=== PATIENT | male | born 1980 | race African-American/Black ===

== ENCOUNTER 2017-10-25 07:54 | Observation (INO) ==
[2017-10-25] MEDS ORDERED: ONDANSETRON 4 MG/2 ML VIAL IV STA (08:19)
[2017-10-25] MEDS ORDERED: HYDROmorphone 2 MG/1 ML VIAL IV STA (08:19)
[2017-10-25] MEDS ORDERED: PANTOPRAZOLE 40 MG VIAL IV STA (08:19)
[2017-10-25] MEDS ORDERED: SODIUM CHLORIDE 0.9% 1,000 ML IV STA ×2 (08:19→08:59)
[2017-10-25 08:25] LABS: Hematocrit 40.5 VOL% (42.0-52.0); Hemoglobin 14.3 GM/DL (14.0-18.0); Mean Corpuscular Hemoglobin 31 PG (27-34); Mean Corpuscular Volume 86.9 FL (87-102); Red Blood Count 4.66 MC/CUMM (3.8-5.5); White Blood Count 8.7 T/CUMM (4-12)
[2017-10-25 08:26] LABS: Basophils # 0.1 10*3/uL (0.0-0.2); Basophils % 1.2 % (0.0-0.8); Eosinophils # 0.1 10*3/uL (0.0-0.87); Eosinophils % 0.9 % (0.00-10.9); Immature Granulocytes % 0.3 %; Immature Granulocytes Absolute 0.03 #; Lymphocytes # 2.1 10*3/uL (1.4-4.0); Mean Corpuscular HGB Conc 35.3 GM/DL (32-36); Mean Platelet Volume 10.3 FL (9.6-12.0); Monocytes # 0.7 10*3/uL (0.11-0.8); Monocytes % 7.7 % (1.7-12.7); Neutrophils # 5.7 10*3/uL (1.4-7.4); Neutrophils % 65.9 % (38.7-73.9); Platelet Count 270 T/CUMM (130-400); Red Cell Distribution Width 13.7 % (9.3-17.3)
[2017-10-25 08:39] LABS: Alanine Aminotransferase 38 U/L (16-61); Albumin 3.6 G/DL (3.4-5.0); Alkaline Phosphatase 86 U/L (45-117); Aspartate Amino Transferase 52 U/L (0-37); Blood Urea Nitrogen 7 MG/DL (7-18); Calcium 8.9 MG/DL (8.5-10.1); Glucose 115 MG/DL (74-106); Osmolality,Calculated 284.8 MOS/KG (273-304); Potassium 3.2 MMOL/L (3.5-5.1); Sodium 144 MMOL/L (136-145); Total Protein 7.2 G/DL (6.4-8.3)
[2017-10-25 08:44] LABS: Lactic Acid 3.6 MMOL/L (0.4-2.0)
[2017-10-25 09:57] LABS: Apearance,Urine CLEAR (Clear); Bilirubin,Urine Negative (Negative); Blood, Urine Negative (Negative); Glucose,Urine (UA) Negative (Negative); Hyaline Casts,Urine 6 /LPF (0-3); Ketones,Urine Negative (Negative); Mucus,Urine Few /LPF (Occasional); Nitrite,Urine Negative (Negative); Protein,Urine 30 MG/DL; RBC,Urine <1 /HPF (0-4); Urine Color Yellow (Yellow); Urine Specific Gravity 1.019 (1.001-1.035); Urine Urobilinogen < 2.0 EU/DL (0.2-1.0); WBC,Urine <1 /HPF (0-6)
[2017-10-25 10:16] LABS: Barbiturates Screen,Urine Negative (Negative); Benzodiazepines Screen,Urine Negative (Negative); Cannabinoid Screen,Urine Negative (Negative); Opiate Screen,Urine Negative (Negative); Phencyclidine Screen,Urine Negative (Negative)
[2017-10-25] MEDS ORDERED: MORPHINE 4 MG/1 ML VIAL IV PRN (11:16)
[2017-10-25] MEDS ORDERED: ONDANSETRON 4 MG/2 ML VIAL IV PRN (11:16)
[2017-10-25] MEDS ORDERED: guaiFENesin/DM ER 600-30 MG TABLET PO PRN (11:16)
[2017-10-25] MEDS ORDERED: ACETAMINOPHEN 325 MG TABLET PO PRN (11:16)
[2017-10-25] MEDS ORDERED: diphenhydrAMINE CAP 25 MG CAPSULE PO PRN (11:16)
[2017-10-25] MEDS ORDERED: NICOTINE 21 MG/24 HR PATCH TRANSDERM PRN (11:16)
[2017-10-25] MEDS ORDERED: POTASSIUM CHLORIDE 20 MEQ TABLET PO ONE (11:27)
[2017-10-25] MEDS: SODIUM CHLORIDE 0.9% 1,000 ML IV SCH ×2 (12:39→20:55)
[2017-10-25] MEDS: PANTOPRAZOLE 40 MG VIAL IV SCH ×2 (12:40→20:55)
[2017-10-25 15:00] LABS: Troponin I Only < 0.015 NG/ML (0.00-0.045)
[2017-10-26] MEDS: SODIUM CHLORIDE 0.9% 1,000 ML IV SCH (04:30)
[2017-10-26 06:49] LABS: Basophils # 0.1 10*3/uL (0.0-0.2); Eosinophils # 0.3 10*3/uL (0.0-0.87); Eosinophils % 4.3 % (0.00-10.9); Hematocrit 34.4 VOL% (42.0-52.0); Hemoglobin 12.4 GM/DL (14.0-18.0); Immature Granulocytes % 0.2 %; Immature Granulocytes Absolute 0.01 #; Lymphocytes # 1.6 10*3/uL (1.4-4.0); Mean Corpuscular Hemoglobin 31 PG (27-34); Mean Platelet Volume 10.5 FL (9.6-12.0); Monocytes # 0.5 10*3/uL (0.11-0.8); Monocytes % 8.9 % (1.7-12.7); NRBC # 0.02 10*3/uL; Neutrophils # 3.4 10*3/uL (1.4-7.4); Neutrophils % 58.6 % (38.7-73.9); Platelet Count 198 T/CUMM (130-400); Red Cell Distribution Width 13.7 % (9.3-17.3); White Blood Count 5.9 T/CUMM (4-12)
[2017-10-26 07:02] LABS: Albumin 2.5 G/DL (3.4-5.0); Bilirubin,Total 1.3 MG/DL (0.2-1.0); Calcium 7.9 MG/DL (8.5-10.1); Osmolality,Calculated 278.1 MOS/KG (273-304); Potassium 3.8 MMOL/L (3.5-5.1); Risk Ratio 2.12; Thyroid Stimulating Hormone 0.958 uIU/ml (0.358-3.74); Total Protein 5.3 G/DL (6.4-8.3); VLDL CHOLESTEROL 18.4 MG/DL
[2017-10-26] MEDS: PANTOPRAZOLE 40 MG VIAL IV SCH (09:17)
[2017-10-26 12:08] VITALS: BP 107/68
== END 2017-10-26 12:15 | disposition home or self-care (01) ==
LOC: EDBD → EDUNIT# → N.EDINP 07:54 → N.ED 07:54 → SUATTDRO 10:41 → N.EDINP 12:24 → N.2E 12:29
PROVIDERS: ADMIT Family Medicine; ATTEND Internal Medicine

== ENCOUNTER 2018-04-07 12:01 | Inpatient (IN) ==
[2018-04-07] MEDS ORDERED: SODIUM CHLORIDE 0.9% 1,000 ML IV STA (12:17)
[2018-04-07] MEDS ORDERED: LORazepam 2 MG/1 ML VIAL ONE (12:36)
[2018-04-07] MEDS ORDERED: LORazepam 2 MG/1 ML VIAL IV STA ×2 (12:42→13:37)
[2018-04-07 12:43] LABS: Apearance,Urine CLEAR (Clear); Bilirubin,Urine Negative (Negative); Blood, Urine Negative (Negative); Glucose,Urine (UA) Negative (Negative); Ketones,Urine Negative (Negative); Nitrite,Urine Negative (Negative); Protein,Urine Negative; RBC,Urine <1 /HPF (0-4); Urine Color Colorless (Yellow); Urine Specific Gravity 1.001 (1.001-1.035); Urine Urobilinogen < 2.0 EU/DL (0.2-1.0)
[2018-04-07 12:45] LABS: Barbiturates Screen,Urine Negative (Negative); Benzodiazepines Screen,Urine Negative (Negative); Cannabinoid Screen,Urine Negative (Negative); Opiate Screen,Urine Negative (Negative); Phencyclidine Screen,Urine Negative (Negative)
[2018-04-07 13:00] LABS: Basophils # 0.1 10*3/uL (0.0-0.2); Basophils % 0.7 % (0.0-0.8); Eosinophils # 0.2 10*3/uL (0.0-0.87); Eosinophils % 2.1 % (0.00-10.9); Hematocrit 38.3 VOL% (42.0-52.0); Immature Granulocytes % 0.5 %; Immature Granulocytes Absolute 0.04 #; Lymphocytes # 1.8 10*3/uL (1.4-4.0); Lymphocytes % 22.6 % (21.2-54.2); Mean Corpuscular HGB Conc 33.9 GM/DL (32-36); Mean Corpuscular Hemoglobin 30 PG (27-34); Mean Corpuscular Volume 88.2 FL (87-102); Mean Platelet Volume 10.2 FL (9.6-12.0); Monocytes # 0.7 10*3/uL (0.11-0.8); Monocytes % 9.1 % (1.7-12.7); Neutrophils # 5.3 10*3/uL (1.4-7.4); Platelet Count 123 T/CUMM (130-400); Red Blood Count 4.34 MC/CUMM (3.8-5.5); Red Cell Distribution Width 14.1 % (9.3-17.3); White Blood Count 8.1 T/CUMM (4-12)
[2018-04-07 13:07] LABS: INR 0.9; PT Patient Result 9.7 SECS; Partial Thromboplastin Time 27.1 SECS (0-40)
[2018-04-07] MEDS ORDERED: THIAMINE INJ 100 MG, FOLIC ACID INJ 1 MG, MAGNESIUM SULF INJ 2 GM, MULTIVITAMIN INJ 10 ... IV ONE (13:45)
[2018-04-07 14:03] LABS: Albumin 3.4 G/DL (3.4-5.0); Bilirubin,Total 0.4 MG/DL (0.2-1.0); Osmolality,Calculated 275.4 MOS/KG (273-304); Potassium 4.1 MMOL/L (3.5-5.1); Total Protein 7.1 G/DL (6.4-8.3)
[2018-04-07] MEDS ORDERED: chlordiazePOXIDE 25 MG CAPSULE PO PRN (14:31)
[2018-04-07] MEDS ORDERED: DICYCLOMINE 10 MG CAPSULE PO PRN (14:31)
[2018-04-07] MEDS ORDERED: ALBUTEROL 2.5 MG/3 ML NEB RESP TX PRN (14:31)
[2018-04-07] MEDS ORDERED: ONDANSETRON 4 MG/2 ML VIAL IV PRN (14:31)
[2018-04-07] MEDS ORDERED: PROMETHAZINE 25 MG/1 ML VIAL IM PRN (14:31)
[2018-04-07] MEDS ORDERED: PROMETHAZINE 25 MG TABLET PO PRN (14:31)
[2018-04-07] MEDS ORDERED: THIAMINE 200 MG/2 ML VIAL IV ONE (14:31)
[2018-04-07] MEDS ORDERED: hydrOXYzine HCL 25 MG TABLET PO PRN (14:31)
[2018-04-07] MEDS ORDERED: POTASSIUM CHLORIDE RIDER 10 MEQ in PREMIX 1 EACH IV PRN (14:39)
[2018-04-07] MEDS ORDERED: MAGNESIUM SULF RIDER 4 GM in PREMIX 1 EACH IV PRN (14:40)
[2018-04-07] MEDS ORDERED: MAGNESIUM SULF RIDER 2 GM in PREMIX 1 EACH IV PRN (14:40)
[2018-04-07] MEDS: LORazepam 2 MG/1 ML VIAL IV PRN ×2 (15:25→20:38)
[2018-04-07] MEDS: LACTATED RINGERS 1,000 ML IV SCH (16:00)
[2018-04-07] MEDS ORDERED: INFLUENZA VIRUS VACCINE 0.5 ML SYRINGE IM ONE (16:03)
[2018-04-07] MEDS: FAMOTIDINE 20 MG/2 ML VIAL IV SCH (16:14)
[2018-04-07] MEDS: ENOXAPARIN 40 MG/0.4 ML SYRINGE SUBCUT SCH (16:14)
[2018-04-07] MEDS: FOLIC ACID 1 MG TABLET PO SCH (20:38)
[2018-04-08] MEDS: LACTATED RINGERS 1,000 ML IV SCH ×3 (01:40→11:59)
[2018-04-08] MEDS: FAMOTIDINE 20 MG/2 ML VIAL IV SCH ×2 (05:10→16:15)
[2018-04-08 05:31] LABS: Albumin 2.9 G/DL (3.4-5.0); Calcium 7.7 MG/DL (8.5-10.1); Osmolality,Calculated 281.8 MOS/KG (273-304); Potassium 3.9 MMOL/L (3.5-5.1); Total Protein 5.5 G/DL (6.4-8.3)
[2018-04-08 05:49] LABS: Basophils # 0.1 10*3/uL (0.0-0.2); Basophils % 1.2 % (0.0-0.8); Eosinophils # 0.3 10*3/uL (0.0-0.87); Hematocrit 31.8 VOL% (42.0-52.0); Hemoglobin 10.9 GM/DL (14.0-18.0); Immature Granulocytes % 0.4 %; Immature Granulocytes Absolute 0.02 #; Lymphocytes # 1.6 10*3/uL (1.4-4.0); Lymphocytes % 32.4 % (21.2-54.2); Mean Corpuscular HGB Conc 34.3 GM/DL (32-36); Mean Corpuscular Hemoglobin 31 PG (27-34); Mean Corpuscular Volume 89.3 FL (87-102); Mean Platelet Volume 11.3 FL (9.6-12.0); Monocytes # 0.4 10*3/uL (0.11-0.8); Monocytes % 8.3 % (1.7-12.7); Neutrophils # 2.7 10*3/uL (1.4-7.4); Neutrophils % 52.7 % (38.7-73.9); Platelet Count 108 T/CUMM (130-400); Red Blood Count 3.56 MC/CUMM (3.8-5.5); Red Cell Distribution Width 14.6 % (9.3-17.3)
[2018-04-08] MEDS: ACETAMINOPHEN 325 MG TABLET PO PRN (08:23)
[2018-04-08] MEDS: THIAMINE 100 MG TABLET PO SCH (08:24)
[2018-04-08] MEDS: ENOXAPARIN 40 MG/0.4 ML SYRINGE SUBCUT SCH (16:14)
[2018-04-08] MEDS: LORazepam 2 MG/1 ML VIAL IV PRN (16:15)
[2018-04-08] MEDS: FOLIC ACID 1 MG TABLET PO SCH (21:57)
[2018-04-09] MEDS: FAMOTIDINE 20 MG/2 ML VIAL IV SCH ×2 (03:58→15:58)
[2018-04-09] MEDS: THIAMINE 100 MG TABLET PO SCH (08:29)
[2018-04-09] MEDS: PSEUDOEPHEDRINE 30 MG TABLET PO SCH ×2 (10:28→21:21)
[2018-04-09] MEDS: FLUTICASONE 50 MCG NASAL SPRAY 16 GM BOTTLE BOTH NARES SCH ×2 (10:28→21:21)
[2018-04-09] MEDS: LACTATED RINGERS 1,000 ML IV SCH (10:29)
[2018-04-09] MEDS: ENOXAPARIN 40 MG/0.4 ML SYRINGE SUBCUT SCH (15:58)
[2018-04-09] MEDS: ACETAMINOPHEN 325 MG TABLET PO PRN (19:13)
[2018-04-09] MEDS: FOLIC ACID 1 MG TABLET PO SCH (21:21)
[2018-04-10] MEDS: LACTATED RINGERS 1,000 ML IV SCH (03:34)
[2018-04-10] MEDS: FAMOTIDINE 20 MG/2 ML VIAL IV SCH (04:06)
[2018-04-10 07:52] VITALS: BP 130/83
[2018-04-10] MEDS: THIAMINE 100 MG TABLET PO SCH (08:45)
[2018-04-10] MEDS: PSEUDOEPHEDRINE 30 MG TABLET PO SCH (08:45)
[2018-04-10] MEDS: FLUTICASONE 50 MCG NASAL SPRAY 16 GM BOTTLE BOTH NARES SCH (08:46)
[2018-04-10] MEDS ORDERED: INFLUENZA VIRUS VACCINE 0.5 ML SYRINGE IM ONE (09:30)
== END 2018-04-10 09:40 | disposition home or self-care (01) | DRG 897 ==
LOC: EDBD → EDUNIT# → N.ED 12:01 → SUATTDRO 14:31 → N.CC 14:31 → N.5E 04-08 13:08
PROVIDERS: ADMIT Family Medicine; ATTEND Internal Medicine

== ENCOUNTER 2022-01-23 06:17 | Inpatient (IN) ==
[2022-01-23] MEDS ORDERED: ONDANSETRON 4 MG/2 ML VIAL IV STA ×2 (06:53→08:50)
[2022-01-23] MEDS ORDERED: SODIUM CHLORIDE 0.9% 1,000 ML IV STA ×2 (06:53→09:21)
[2022-01-23] MEDS ORDERED: HYDROmorphone 1 MG/1 ML SYRINGE IV STA ×2 (06:53→09:21)
[2022-01-23 06:59] LABS: Basophils # 0.1 10*3/uL (0.0-0.2); Basophils % 1.2 % (0.0-0.8); Eosinophils # 0.1 10*3/uL (0.0-0.87); Eosinophils % 0.6 % (0.00-10.9); Hematocrit 40.4 VOL% (42.0-52.0); Hemoglobin 13.7 GM/DL (14.0-18.0); Immature Granulocytes % 0.3 %; Immature Granulocytes Absolute 0.03 #; Lymphocytes % 10.5 % (21.2-54.2); Mean Corpuscular HGB Conc 33.9 GM/DL (32-36); Mean Corpuscular Volume 91.6 FL (87-102); Monocytes # 0.5 10*3/uL (0.11-0.8); Monocytes % 5.5 % (1.7-12.7); Neutrophils % 81.9 % (38.7-73.9); Platelet Count 238 T/CUMM (130-400); Red Blood Count 4.41 MC/CUMM (3.8-5.5); Red Cell Distribution Width 13.8 % (9.3-17.3); White Blood Count 9.5 T/CUMM (4-12)
[2022-01-23 07:14] LABS: Albumin 3.3 G/DL (3.4-5.0); Bilirubin,Total 0.7 MG/DL (0.20-1.00); Calcium 9.1 MG/DL (8.5-10.1); Total Protein 6.7 G/DL (6.4-8.2)
[2022-01-23 07:17] LABS: Amorphous Crystals,Urine Few /HPF (Few); Mucus,Urine Moderate /LPF (Occasional)
[2022-01-23 07:19] LABS: Bilirubin,Urine Moderate mg/dL (Negative); Blood, Urine Negative (Negative); Glucose,Urine (UA) Negative (Negative); Ketones,Urine 40 mg/dL (Negative); Nitrite,Urine Negative (Negative); Protein,Urine 100 mg/dL (Negative); Urine Appearance Slightly Hazy (Clear); Urine Color Dark yellow (Yellow); Urine pH 8.5 (4.5-8.0)
[2022-01-23] MEDS ORDERED: PIPERACILLIN/TAZOBACTAM 3,375 MG in SODIUM CHLORIDE 0.9% 100 ML IV STA (09:58)
[2022-01-23] MEDS ORDERED: BISACODYL 5 MG TABLET PO PRN (10:46)
[2022-01-23] MEDS ORDERED: ONDANSETRON 4 MG/2 ML VIAL IV PRN (10:46)
[2022-01-23] MEDS ORDERED: ACETAMINOPHEN 325 MG TABLET PO PRN (10:46)
[2022-01-23] MEDS ORDERED: KETOROLAC 15 MG/1 ML VIAL IV PRN (10:46)
[2022-01-23] MEDS ORDERED: HYDROmorphone 1 MG/1 ML SYRINGE IV PRN (10:46)
[2022-01-23] MEDS ORDERED: PROMETHAZINE 25 MG/1 ML VIAL IM STA (11:00)
[2022-01-23] MEDS ORDERED: PROMETHAZINE 25 MG/1 ML VIAL ONE (11:01)
[2022-01-23] MEDS: LACTATED RINGERS 1,000 ML IV SCH ×2 (12:00→23:10)
[2022-01-23] MEDS: HYDROmorphone 1 MG/1 ML SYRINGE IV PRN (14:39)
[2022-01-23] MEDS: PIPERACILLIN/TAZOBACTAM 3,375 MG in SODIUM CHLORIDE 0.9% 100 ML IV SCH (17:00)
[2022-01-24] MEDS: PIPERACILLIN/TAZOBACTAM 3,375 MG in SODIUM CHLORIDE 0.9% 100 ML IV SCH ×3 (01:17→17:00)
[2022-01-24] MEDS: HYDROmorphone 1 MG/1 ML SYRINGE IV PRN ×2 (01:19→09:46)
[2022-01-24 05:24] LABS: Basophils # 0.1 10*3/uL (0.0-0.2); Basophils % 0.9 % (0.0-0.8); Eosinophils # 0.3 10*3/uL (0.0-0.87); Eosinophils % 4.2 % (0.00-10.9); Hematocrit 35.8 VOL% (42.0-52.0); Hemoglobin 12.5 GM/DL (14.0-18.0); Immature Granulocytes % 0.4 %; Immature Granulocytes Absolute 0.03 #; Lymphocytes # 1.4 10*3/uL (1.4-4.0); Lymphocytes % 19.1 % (21.2-54.2); Mean Corpuscular HGB Conc 34.9 GM/DL (32-36); Mean Corpuscular Volume 91.3 FL (87-102); Mean Platelet Volume 10.6 FL (9.6-12.0); Monocytes # 0.5 10*3/uL (0.11-0.8); Monocytes % 6.9 % (1.7-12.7); Neutrophils % 68.5 % (38.7-73.9); Red Blood Count 3.92 MC/CUMM (3.8-5.5); Red Cell Distribution Width 13.7 % (9.3-17.3); White Blood Count 7.4 T/CUMM (4-12)
[2022-01-24 05:26] LABS: Albumin 2.7 G/DL (3.4-5.0); Bilirubin,Total 1.1 MG/DL (0.20-1.00); Calcium 8.2 MG/DL (8.5-10.1); Osmolality,Calculated 275.4 MOS/KG (273-304); Platelet Count 190 T/CUMM (130-400); Potassium 3.5 MMOL/L (3.5-5.1); Total Protein 5.6 G/DL (6.4-8.2)
[2022-01-24] MEDS: LACTATED RINGERS 1,000 ML IV SCH ×2 (05:59→16:29)
[2022-01-24] MEDS: PANTOPRAZOLE 40 MG TABLET PO SCH (09:42)
[2022-01-25] MEDS: PIPERACILLIN/TAZOBACTAM 3,375 MG in SODIUM CHLORIDE 0.9% 100 ML IV SCH ×3 (02:58→17:49)
[2022-01-25] MEDS: PANTOPRAZOLE 40 MG TABLET PO SCH (08:41)
[2022-01-25 09:06] LABS: Basophils # 0.1 10*3/uL (0.0-0.2); Eosinophils # 0.4 10*3/uL (0.0-0.87); Eosinophils % 4.9 % (0.00-10.9); Hematocrit 38.7 VOL% (42.0-52.0); Hemoglobin 13.1 GM/DL (14.0-18.0); Immature Granulocytes % 0.6 %; Immature Granulocytes Absolute 0.04 #; Lymphocytes # 1.1 10*3/uL (1.4-4.0); Lymphocytes % 14.6 % (21.2-54.2); Mean Corpuscular HGB Conc 33.9 GM/DL (32-36); Mean Platelet Volume 10.7 FL (9.6-12.0); Monocytes # 0.4 10*3/uL (0.11-0.8); Monocytes % 6.1 % (1.7-12.7); Neutrophils % 72.8 % (38.7-73.9); Platelet Count 178 T/CUMM (130-400); Red Blood Count 4.16 MC/CUMM (3.8-5.5); Red Cell Distribution Width 13.5 % (9.3-17.3); White Blood Count 7.2 T/CUMM (4-12)
[2022-01-25 09:21] LABS: Calcium 8.7 MG/DL (8.5-10.1)
[2022-01-25] MEDS: LACTATED RINGERS 1,000 ML IV SCH ×2 (11:21→14:30)
[2022-01-26] MEDS: PIPERACILLIN/TAZOBACTAM 3,375 MG in SODIUM CHLORIDE 0.9% 100 ML IV SCH ×2 (02:13→10:00)
[2022-01-26] MEDS: LACTATED RINGERS 1,000 ML IV SCH ×2 (02:15→03:32)
[2022-01-26] MEDS: PANTOPRAZOLE 40 MG TABLET PO SCH (08:46)
[2022-01-26 11:18] VITALS: BP 118/76
== END 2022-01-26 11:55 | disposition home or self-care (01) | DRG 392 ==
LOC: N.ED 06:17 → N.3E 11:21
PROVIDERS: ADMIT Student in an Organized Health Care Education/Training Program; ATTEND Student in an Organized Health Care Education/Training Program

== ENCOUNTER 2022-06-07 10:44 | Observation (INO) ==
[2022-06-07] MEDS ORDERED: HYDROmorphone 1 MG/1 ML SYRINGE IV STA (11:13)
[2022-06-07] MEDS ORDERED: SODIUM CHLORIDE 0.9% 1,000 ML IV STA ×2 (11:13→13:21)
[2022-06-07] MEDS ORDERED: ONDANSETRON 4 MG/2 ML VIAL IV STA ×2 (11:13→14:04)
[2022-06-07 11:35] LABS: Basophils # 0.1 10*3/uL (0.0-0.2); Basophils % 1.2 % (0.0-0.8); Eosinophils % 0.2 % (0.00-10.9); Hematocrit 43.1 VOL% (42.0-52.0); Hemoglobin 15.1 GM/DL (14.0-18.0); Immature Granulocytes % 0.5 %; Immature Granulocytes Absolute 0.03 #; Lymphocytes # 0.7 10*3/uL (1.4-4.0); Lymphocytes % 11.5 % (21.2-54.2); Mean Corpuscular Volume 87.4 FL (87-102); Mean Platelet Volume 9.9 FL (9.6-12.0); Monocytes # 0.5 10*3/uL (0.11-0.8); Monocytes % 8.3 % (1.7-12.7); Neutrophils % 78.3 % (38.7-73.9); Platelet Count 187 T/CUMM (130-400); Red Blood Count 4.93 MC/CUMM (3.8-5.5); Red Cell Distribution Width 13.9 % (9.3-17.3); White Blood Count 6.41 T/CUMM (4-12)
[2022-06-07 11:56] LABS: Alanine Aminotransferase 49 U/L (16-61); Albumin 4.6 G/DL (3.4-5.0); Alkaline Phosphatase 107 U/L (45-117); Amylase 122 U/L (25-115); Aspartate Amino Transferase 57 U/L (0-37); Blood Urea Nitrogen 9 MG/DL (7-18); Calcium 9.5 MG/DL (8.5-10.1); Carbon Dioxide 28 MMOL/L (21-32); Chloride 101 MMOL/L (98-107); Glucose 116 MG/DL (74-106); Osmolality,Calculated 280.3 MOS/KG (273-304); Potassium 3.9 MMOL/L (3.5-5.1); Sodium 141 MMOL/L (136-145); Total Protein 8.6 G/DL (6.4-8.2)
[2022-06-07 13:58] LABS: Bacteria,Urine Occasional /HPF (Few); Mucus,Urine Occasional /LPF (Occasional); RBC,Urine 1 /HPF (0-4)
[2022-06-07 13:59] LABS: Bilirubin,Urine Negative (Negative); Blood, Urine Negative (Negative); Glucose,Urine (UA) Negative (Negative); Ketones,Urine Negative (Negative); Nitrite,Urine Negative (Negative); Protein,Urine 100 mg/dL (Negative); Urine Appearance Clear (Clear); Urine Color Yellow (Yellow); Urine Urobilinogen 0.2 eU/dL (<2.0)
[2022-06-07] MEDS ORDERED: PROMETHAZINE INJ 25 MG in SODIUM CHLORIDE 0.9% 50 ML IV STA ×2 (15:39→16:05)
[2022-06-07] MEDS ORDERED: PROMETHAZINE 25 MG/1 ML VIAL ONE (16:04)
[2022-06-07] MEDS ORDERED: ONDANSETRON 4 MG/2 ML VIAL IV PRN (17:32)
[2022-06-07] MEDS ORDERED: ACETAMINOPHEN 325 MG TABLET PO PRN (17:32)
[2022-06-07] MEDS ORDERED: PROMETHAZINE 25 MG/1 ML VIAL IM PRN (17:32)
[2022-06-07] MEDS ORDERED: LACTATED RINGERS 1,000 ML IV ONE (17:35)
[2022-06-07] MEDS: PIPERACILLIN/TAZOBACTAM 3,375 MG in SODIUM CHLORIDE 0.9% 100 ML IV SCH (21:19)
[2022-06-07] MEDS: LACTATED RINGERS 1,000 ML IV SCH (21:19)
[2022-06-08] MEDS: MORPHINE 2 MG/1 ML SYRINGE IV PRN ×2 (00:02→08:04)
[2022-06-08] MEDS: LACTATED RINGERS 1,000 ML IV SCH ×6 (02:00→22:55)
[2022-06-08] MEDS: PIPERACILLIN/TAZOBACTAM 3,375 MG in SODIUM CHLORIDE 0.9% 100 ML IV SCH ×3 (02:30→20:35)
[2022-06-08 06:58] LABS: Albumin 3.3 G/DL (3.4-5.0); Bilirubin,Total 0.8 MG/DL (0.20-1.00); Calcium 8.3 MG/DL (8.5-10.1); Potassium 3.2 MMOL/L (3.5-5.1); Total Protein 6.5 G/DL (6.4-8.2)
[2022-06-08 07:04] LABS: Osmolality,Calculated 277.4 MOS/KG (273-304)
[2022-06-08 07:24] LABS: Basophils # 0.1 10*3/uL (0.0-0.2); Basophils % 0.7 % (0.0-0.8); Eosinophils # 0.1 10*3/uL (0.0-0.87); Eosinophils % 0.7 % (0.00-10.9); Hematocrit 33.5 VOL% (42.0-52.0); Immature Granulocytes % 0.3 %; Immature Granulocytes Absolute 0.02 #; Lymphocytes # 1.4 10*3/uL (1.4-4.0); Lymphocytes % 20.5 % (21.2-54.2); Mean Corpuscular HGB Conc 35.2 GM/DL (32-36); Mean Corpuscular Volume 88.4 FL (87-102); Mean Platelet Volume 10.3 FL (9.6-12.0); Monocytes # 0.8 10*3/uL (0.11-0.8); Monocytes % 11.8 % (1.7-12.7); Red Cell Distribution Width 13.9 % (9.3-17.3); White Blood Count 6.68 T/CUMM (4-12)
[2022-06-08 07:26] LABS: Hemoglobin 11.8 GM/DL (14.0-18.0); Platelet Count 145 T/CUMM (130-400); Red Blood Count 3.79 MC/CUMM (3.8-5.5)
[2022-06-08] MEDS: NICOTINE 14 MG/24 HR PATCH TRANSDERM SCH (08:01)
[2022-06-08] MEDS ORDERED: PANTOPRAZOLE 40 MG VIAL IV SCH (09:00)
[2022-06-08] MEDS: POTASSIUM CHLORIDE RIDER 10 MEQ/100 ML PREMIX IV PRN ×4 (13:45→18:22)
[2022-06-09] MEDS: LACTATED RINGERS 1,000 ML IV SCH ×2 (02:27→10:16)
[2022-06-09] MEDS: PIPERACILLIN/TAZOBACTAM 3,375 MG in SODIUM CHLORIDE 0.9% 100 ML IV SCH ×3 (04:28→22:02)
[2022-06-09 07:55] LABS: Basophils # 0.1 10*3/uL (0.0-0.2); Basophils % 0.9 % (0.0-0.8); Eosinophils # 0.1 10*3/uL (0.0-0.87); Eosinophils % 1.8 % (0.00-10.9); Hematocrit 36.2 VOL% (42.0-52.0); Hemoglobin 12.3 GM/DL (14.0-18.0); Lymphocytes # 1.2 10*3/uL (1.4-4.0); Lymphocytes % 18.4 % (21.2-54.2); Mean Corpuscular Volume 88.5 FL (87-102); Mean Platelet Volume 10.5 FL (9.6-12.0); Monocytes # 0.5 10*3/uL (0.11-0.8); Neutrophils % 70.6 % (38.7-73.9); Platelet Count 134 T/CUMM (130-400); Red Blood Count 4.09 MC/CUMM (3.8-5.5); Red Cell Distribution Width 13.9 % (9.3-17.3); White Blood Count 6.51 T/CUMM (4-12)
[2022-06-09 08:12] LABS: Albumin 3.3 G/DL (3.4-5.0); Bilirubin,Total 1.2 MG/DL (0.20-1.00); Calcium 8.6 MG/DL (8.5-10.1); Osmolality,Calculated 275.5 MOS/KG (273-304); Potassium 3.8 MMOL/L (3.5-5.1); Total Protein 6.4 G/DL (6.4-8.2)
[2022-06-09 08:28] LABS: Eosinophils 3 % (0-10); Hypochromia Slight; Lymphocytes 17 % (20-55); Microcytosis Slight; Platelet Estimate Normal
[2022-06-09] MEDS ORDERED: ZIPRASIDONE 20 MG/1 ML VIAL IM ONE (09:24)
[2022-06-09] MEDS: PANTOPRAZOLE 40 MG TABLET PO SCH (09:35)
[2022-06-09] MEDS: NICOTINE 14 MG/24 HR PATCH TRANSDERM SCH (09:37)
[2022-06-09] MEDS: POTASSIUM CHLORIDE 20 MEQ TABLET PO PRN ×2 (09:39→12:47)
[2022-06-09 21:24] LABS: Barbiturates Screen,Urine Negative (Negative); Benzodiazepines Screen,Urine Negative (Negative); Cannabinoid Screen,Urine Negative (Negative); Opiate Screen,Urine Negative (Negative); Phencyclidine Screen,Urine Negative (Negative)
[2022-06-09] MEDS: MORPHINE 2 MG/1 ML SYRINGE IV PRN (23:38)
[2022-06-10] MEDS: PIPERACILLIN/TAZOBACTAM 3,375 MG in SODIUM CHLORIDE 0.9% 100 ML IV SCH (05:13)
[2022-06-10] MEDS: MORPHINE 2 MG/1 ML SYRINGE IV PRN (05:15)
[2022-06-10 05:35] LABS: Calcium 8.3 MG/DL (8.5-10.1); Osmolality,Calculated 277.4 MOS/KG (273-304); Potassium 3.3 MMOL/L (3.5-5.1)
[2022-06-10] MEDS: PANTOPRAZOLE 40 MG TABLET PO SCH (09:00)
[2022-06-10] MEDS: POTASSIUM CHLORIDE 20 MEQ TABLET PO PRN ×2 (09:00→12:44)
[2022-06-10] MEDS: NICOTINE 14 MG/24 HR PATCH TRANSDERM SCH (09:01)
[2022-06-10 11:49] VITALS: BP 125/76
== END 2022-06-10 13:37 | disposition home or self-care (01) ==
LOC: N.2W 10:44 → N.ED 10:44 → N.2W 20:04
PROVIDERS: ADMIT Internal Medicine; ATTEND Internal Medicine